=== PATIENT | female | born 1940 | race Caucasian/White ===

== ENCOUNTER 2023-01-19 08:34 | Outpatient (CLI) | payer OTHER ==
[~2023-01-19 08:34] MED LIST: ASPIR 8181 MG PO; GABAPENTIN300 MG PO; LANTUS; LANTUS100 U/ML; LEVOTHYROXINE25 MCG; LOSARTAN POTAS100 MG; METFORMIN HCL500 MG; NORVASC5 MG
== END 2023-01-19 08:41 | disposition home or self-care (01) ==
LOC: RX STUDY 08:34
DX: R13.10 Dysphagia, unspecified (principal)

== ENCOUNTER 2023-02-21 07:25 | Outpatient (CLI) | payer OTHER | END 2023-02-21 07:30 | disposition home or self-care (01) | LOC: TOM 07:25 | DX: Z12.11 Encounter for screening for malignant neoplasm of colon (principal) ==